=== PATIENT | female | born 1950 | race Caucasian/White ===

== ENCOUNTER 2016-03-03 08:33 | Emergency (ER) | payer OTHER ==
[2016-03-03 08:44] VITALS: BP 94/70; PULSE 78; RESP 18; TEMP 98; O2SAT 97
--- NOTE | 2016-03-03 09:54 | DX ---
Right Foot, 3 views. HISTORY: Pain in right foot. Injury rolling right foot. FINDINGS: Normal mineralization and alignment. Minimal early degenerative change is seen in the first metatarsophalangeal joint. No evidence for acute fracture or dislocation. No evidence for periarticu lar erosion or soft tissue calcification. IMPRESSION: No evidence for acute fracture.
--- NOTE | 2016-03-03 10:04 | UCPHY ---
H & P Time Seen by Provider: 03/03/16 08:53 Patient Type: Established HPI/ROS: 65-year-old female presents complaining of right foot pain she states that began last night when she stood up after sitting for about an hour with her legs crossed she rolled her for foot/ankle and suddenly had severe pain. No numbness or tingling Review of systems General no fever no chills no weakness HEENT no eye pain no eye discharge. No eye redness, no sore throat Respiratory no cough, no shortness of breath Cardiac no chest pain, no peripheral edema GI no abdominal pain, no diarrhea, no constipation, no nausea, no vomiting no flank pain, no hematuria, no dysuria Musculoskeletal no myalgias, positive joint pain Heme no easy bruising, no easy bleeding Endo no polyuria, no polydipsia Skin no rashes, no pruritus Neuro no syncope, no dizziness, no headaches Psych is no suicidal ideation, no homicidal ideation Past Medical/Surgical History: Lupus Social History: Denies alcohol or drug use Smoking Status: Never smoked Physical Exam: 65-year-old female alert and oriented no acute distress nontoxic appearance afebrile Atraumatic normocephalic Neck no JVD Lungs clear to auscultation, no respiratory distress Heart regular rate and rhythm Extremities no cyanosis clubbing edema Right foot-ecchymosis and tenderness over the right proximal 5th metatarsal, dorsalis pedis and posterior tibialis intact Good capillary refill Foot with normal color Good range of motion of digits in ankle Constitutional: Initial Vital Signs Temperature (C) 36.6 C 03/03/16 08:42 Heart Rate 78 03/03/16 08:42 Respiratory Rate 18 03/03/16 08:42 Blood Pressure 94/70 L 03/03/16 08:42 O2 Sat (%) 97 03/03/16 08:42 O2 Delivery Mode Room Air Allergies/Adverse Reactions: No Known Allergies Allergy (Verified 01/27/12 13:43) Home Medications: Medication Instructions Recorded Plaquenil 200 mg (RX) 02/10/14 Lidocaine 2% Viscous 20 ml PO Q2-4PRN PRN #20 ml 03/09/14 Cephalexin [Keflex] 500 mg PO QID 7 Days 12/24/15 Phenazopyridine HCl [Pyridium] 200 mg PO PC #10 tab 12/24/15 Zolpidem Tartrate [Ambien 5MG (*)] 5 mg PO HS #7 tab 12/24/15 Medical Decision Making - Diagnostics Imaging: Foot x-ray negative for fracture ED Course/Re-evaluation: Patient seen and evaluated for right foot pain and bruising X-ray negative Impression Right foot sprain Plan Walker boot Follow-up podiatry and/or primary care physician Departure - Departure Disposition: Home, Routine, Self-Care Clinical Impression: Right foot sprain Condition: Good Instructions: Foot Sprain (ED) Referrals: Pati Figueroa MD [Primary Care Provider] - As per Instructions Judd Martel MD [Doctor of Podiatric Medicine] - As per Instructions - PQRS PQRS Measurement: na
== END 2016-03-03 10:17 | disposition home or self-care (01) ==
LOC: CED 08:33
DX: S93.601A Unspecified sprain of right foot, initial encounter (principal); X50.1XXA Overexertion from prolonged static or awkward postures, initial encounter; Y92.009 Unspecified place in unspecified non-institutional (private) residence as the place of occurrence of the external cause
CPT/HCPCS: 73630-PO; 99214-PO; G0463-PO; L4386